=== PATIENT | male | born 1965 | race Caucasian/White ===

== ENCOUNTER 2016-05-14 20:14 | Emergency (ER) | payer MEDICAID, OTHER ==
[~2016-05-14] VITALS: Ht 185.4 cm; Wt 100.0 kg
[2016-05-14 20:15] VITALS: BP 141/97; PULSE 78; RESP 24; TEMP 97.6; O2SAT 97
[2016-05-14] MEDS ORDERED: SODIUM CHLOR 0.9% 1000 ML INJ 1,000 ML IV ONE (20:48)
--- NOTE | 2016-05-14 20:50 | PD ---
HPI Chief Complaint: Flank/Kidney Pain Time Seen by Provider: 20:48 Travel History International Travel<30 days: No Contact w/Intl Traveler<30days: No Traveled to known affect area: No History of Present Illness HPI 51-year-old male who reports a history of peptic ulcer disease with previous H. pylori infection, anxiety, depression presents for evaluation of abdominal pain. Symptoms started several hours ago. He describes it as a sharp pain in left lower quadrant of the abdomen that radiates into the back. Symptoms seem to come and go. He reports a similar pain twice over the past 1.5 months which lasted about 20 minutes at a time and then resolved. Today the pain was more constant which prompted evaluation. He reports that he had normal bowel movement today but he feels like he would like to have another bowel movement but is unable to like constipation. He denies any rectal pain, he denies any testicular or scrotal pain, denies any hematuria or true flank pain, urinary hesitancy, nausea or vomiting, fevers or chills. No history of kidney stone, diverticulosis, AAA. No other complaints. PFSH Past Medical History Diminished Hearing: No Hypertension: Yes Medical other: Yes (H PYLORI VS IBS) Past Surgical History Cholecystectomy: Yes Other Surgery: Yes (HERNIA REPAIR) Social History Alcohol Use: No Tobacco Use: No Substance Use: No Allergies-Medications (Allergen,Severity, Reaction): Coded Allergies: No Known Allergies (Unverified , 05/14/16) Reported Meds & Prescriptions Reported Meds & Active Scripts Active Zofran Odt (Ondansetron Odt) 4 Mg Tab 4 Mg SL Q6HR PRN Ketorolac (Ketorolac Tromethamine) 10 Mg Tab 10 Mg PO TID 5 Days Flomax (Tamsulosin HCl) 0.4 Mg Cap 0.4 Mg PO HS Review of Systems Except as stated in HPI: all other systems reviewed are Neg Physical Exam Narrative GENERAL: Well-developed well-nourished male who appears anxious and uncomfortable on initial examination. SKIN: Warm and dry. HEAD: Atraumatic. Normocephalic. EYES: Pupils equal and round. No scleral icterus. No injection or drainage. ENT: No nasal bleeding or discharge. Mucous membranes pink and moist. NECK: Trachea midline. No JVD. CARDIOVASCULAR: Regular rate and rhythm. No murmur appreciated. RESPIRATORY: No accessory muscle use. Clear to auscultation. Breath sounds equal bilaterally. GASTROINTESTINAL: Abdomen soft, left lower quadrant tenderness without guarding. There is no CVA tenderness. No palpable inguinal hernias. No testicular or scrotal pain. The patient declines rectal examination. MUSCULOSKELETAL: No obvious deformities. No edema. NEUROLOGICAL: Awake and alert. No obvious cranial nerve deficits. Motor grossly within normal limits. Normal speech. PSYCHIATRIC: Appropriate mood and affect; insight and judgment normal. Data Data Last Documented VS Vital Signs Date Time Temp Pulse Resp B/P Pulse Ox O2 Delivery O2 Flow Rate FiO2 05/14/16 20:15 97.6 78 24 141/97 97 Room Air Orders Complete Blood Count With Diff (05/14/16 20:48) Comprehensive Metabolic Panel (05/14/16 20:48) Urinalysis - C+S If Indicated (05/14/16 20:48) Ct Abd/Pel W/O Iv Contrast (05/14/16 20:48) Iv Access Insert/Monitor (05/14/16 20:48) Ketorolac Inj (Toradol Inj) (05/14/16 21:00) Morphine Inj (Morphine Inj) (05/14/16 21:00) Sodium Chlor 0.9% 1000 Ml Inj (Ns 1000 M (05/14/16 20:48) Lipase (05/14/16 20:48) ^ Other Nursing Orders (05/14/16 22:02) Labs Laboratory Tests Test 05/14/16 05/14/16 21:00 21:45 White Blood Count 16.1 TH/MM3 Red Blood Count 4.43 MIL/MM3 Hemoglobin 13.8 GM/DL Hematocrit 39.7 % Mean Corpuscular Volume 89.6 FL Mean Corpuscular Hemoglobin 31.2 PG Mean Corpuscular Hemoglobin 34.8 % Concent Red Cell Distribution Width 13.6 % Platelet Count 312 TH/MM3 Mean Platelet Volume 7.2 FL Neutrophils (%) (Auto) 83.7 % Lymphocytes (%) (Auto) 10.2 % Monocytes (%) (Auto) 5.1 % Eosinophils (%) (Auto) 0.6 % Basophils (%) (Auto) 0.4 % Neutrophils # (Auto) 13.4 TH/MM3 Lymphocytes # (Auto) 1.6 TH/MM3 Monocytes # (Auto) 0.8 TH/MM3 Eosinophils # (Auto) 0.1 TH/MM3 Basophils # (Auto) 0.1 TH/MM3 CBC Comment DIFF FINAL Differential Comment Sodium Level 139 MEQ/L Potassium Level 4.3 MEQ/L Chloride Level 105 MEQ/L Carbon Dioxide Level 26.6 MEQ/L Anion Gap 7 MEQ/L Blood Urea Nitrogen 19 MG/DL Creatinine 1.37 MG/DL Estimat Glomerular Filtration 55 ML/MIN Rate Random Glucose 125 MG/DL Calcium Level 9.3 MG/DL Total Bilirubin 0.5 MG/DL Aspartate Amino Transf 32 U/L (AST/SGOT) Alanine Aminotransferase 45 U/L (ALT/SGPT) Alkaline Phosphatase 50 U/L Total Protein 7.8 GM/DL Albumin 4.1 GM/DL Lipase 112 U/L Urine Color YELLOW Urine Turbidity CLEAR Urine pH 6.5 Urine Specific [place] 1.011 Urine Protein NEG mg/dL Urine Glucose (UA) NEG mg/dL Urine Ketones NEG mg/dL Urine Occult Blood TRACE Urine Nitrite NEG Urine Bilirubin NEG Urine Urobilinogen LESS THAN 2.0 MG/DL Urine Leukocyte Esterase NEG Urine RBC 9 /hpf Urine WBC 1 /hpf Urine Mucus FEW /lpf Microscopic Urinalysis Comment CULT NOT INDICATED MDM Medical Decision Making Medical Screen Exam Complete: Yes Emergency Medical Condition: Yes Medical Record Reviewed: Yes Interpretation(s) CONCLUSION: 1. Left-sided obstructive uropathy secondary to 4 mm calculus in the distal left ureter with mild left-sided hydronephrosis and perinephric stranding. CBC WBC 16.1 CMP BUN 19, creatinine 1.37 Urinalysis trace hematuria Differential Diagnosis Renal colic, diverticulitis, AAA, muscle spasm, testicular torsion, colitis Narrative Course 51-year-old male presents with left lower quadrant abdominal pain that radiates into the back for several hours. He has had similar pain twice over the past 1.5 months which lasted 20 minutes at a time and then resolved. On initial examination he appears uncomfortable and anxious but he is declining any stronger analgesics. . He will also be given IV fluids and Zofran. Plans for CT of the abdomen and pelvis, urinalysis, basic lab work. The patient had significant improvement of symptoms during his hospital stay. He continued to decline any pain medication. His CT reveals a left-sided 4 mm kidney stone in the distal left ureter with mild left hydronephrosis. The patient is very anxious to leave. He was given a urinary strainer as well as prescription Toradol, Flomax and Zofran. Recommended returning for new or worsening symptoms. Diagnosis Primary Impression: Left ureteral stone Additional Instructions: Urinate into a strainer. As discussed, you have a 4 mm stone in your left ureter. Most of the time you can pass a 4 mm stone. If you develop new or worsening symptoms return to the emergency room. Med/Other Pt SpecificInfo: Prescription(s) given Scripts Ondansetron Odt (Zofran Odt)4 Mg Tab4 Mg SL Q6HR PRN (Nausea/Vomiting) #20 TAB Ref 0 Prov:Lelo Velásquez MD 05/14/16 Ketorolac 10 Mg Tab10 Mg PO TID 5 Days Ref 0 Prov:Lelo Velásquez MD 05/14/16 Tamsulosin (Flomax)0.4 Mg Cap0.4 Mg PO HS #10 CAP Ref 0 Prov:Lelo Velásquez MD 05/14/16 Disposition: 01 DISCHARGE HOME Condition: Stable Jose L Olivera May 14, 2016 20:50
[2016-05-14] MEDS ORDERED: MORPHINE SULFATE 4 MG/ML INJ IV ONE (21:00)
[2016-05-14] MEDS ORDERED: KETOROLAC TROMETHAMINE 30 MG/ML (IVP) VIAL IVP ONE (21:00)
[2016-05-14 21:22] LABS: AUTOMATED NEUTROPHIL # 13.4 TH/MM3 (1.8-7.7); BASOPHIL # 0.1 TH/MM3 (0-0.2); BASOPHIL % 0.4 % (0.0-2.0); EOSINOPHIL # 0.1 TH/MM3 (0-0.4); EOSINOPHIL % 0.6 % (0.0-4.0); HEMATOCRIT 39.7 % (39.0-51.0); HEMO FLAGS DIFF FINAL; LYMPH % 10.2 % (9.0-44.0); LYMPHOCYTE # 1.6 TH/MM3 (1.0-4.8); MEAN CELL VOLUME 89.6 FL (80.0-100.0); MEAN CORPUSCULAR HEMOGLOBIN 31.2 PG (27.0-34.0); MEAN CORPUSCULAR HGB CONC 34.8 % (32.0-36.0); MONO % 5.1 % (0.0-8.0); NEUT % 83.7 % (16.0-70.0); PLATELET COUNT 312 TH/MM3 (150-450); RED BLOOD COUNT 4.43 MIL/MM3 (4.50-5.90); RED CELL DISTRIBUTION WIDTH 13.6 % (11.6-17.2); WHITE BLOOD COUNT 16.1 TH/MM3 (4.0-11.0)
--- NOTE | 2016-05-14 21:52 | RADRPT ---
EXAM DATE/TIME: 05/14/2016 21:35 [facility] COMPARISON: No previous studies available for comparison. INDICATIONS : Left flank pain. ORAL CONTRAST: No oral contrast ingested. RADIATION DOSE: 13.52 CTDIvol (mGy) MEDICAL HISTORY : Hypertension. Peptic ulcer disease. SURGICAL HISTORY : Cholecystectomy. Hernia repair. ENCOUNTER: Initial ACUITY: 1 day PAIN SCALE: 6/10 LOCATION: Left flank TECHNIQUE: Volumetric scanning of the abdomen and pelvis was performed. Using automated exposure control and ad justment of the mA and/or kV according to patient size, radiation dose was kept as low as reasonably achievable to obtain optimal diagnostic quality images. FINDINGS: Lung bases demonstrate minimal atelectasis. No significant abnormality in the liver, spleen, adrenals , right kidney or pancreas. Previous cholecystectomy. 1.9 cm cyst caudate lobe liver. There is a left-sided obstructive uropathy with mild left hydronephrosis and ureteral dilatation abov e a 4 mm calculus in the distal left ureter just above the bladder. There is left-sided perinephric s tranding. No renal calculi. No right-sided obstructive uropathy. CONCLUSION: 1. Left-sided obstructive uropathy secondary to 4 mm calculus in the distal left ureter with mild lef t-sided hydronephrosis and perinephric stranding. López Chavarria MD on May 14, 2016 at 21:43 Board Certified Radiologist. This report was verified electronically.
[2016-05-14 22:08] LABS: ALKALINE PHOSPHATASE 50 U/L (45-117); ALT (GPT) 45 U/L (12-78); ANION GAP 7 MEQ/L (5-15); AST (GOT) 32 U/L (15-37); BICARBONATE 26.6 MEQ/L (21.0-32.0); BLOOD UREA NITROGEN 19 MG/DL (7-18); CHLORIDE 105 MEQ/L (98-107); GLOMERULAR FILTRATION RATE 55 ML/MIN (>89); POTASSIUM 4.3 MEQ/L (3.5-5.1); SODIUM (NA) 139 MEQ/L (136-145); TOTAL BILIRUBIN ADULT 0.5 MG/DL (0.2-1.0)
[2016-05-14 22:10] LABS: BLOOD, URINE TRACE (NEG); COMMENT (UR) CULT NOT INDICATED; CULTURE IF INDICATED CULT NOT INDICATED; GLUCOSE,URINE NEG (NEG); KETONE, URINE NEG (NEG); MUCUS URINE FEW /lpf (OCC); NITRITE,URINE NEG (NEG); PH, URINE 6.5 (5.0-8.5); URINE COLOR YELLOW (YELLW/STRAW)
[2016-05-14] MEDS ORDERED: KETO10 PO (22:13)
[2016-05-14] MEDS ORDERED: ZOFR4TAB3 SL (22:13)
[2016-05-14] MEDS ORDERED: TAMS5CAP PO (22:13)
--- NOTE | 2016-05-14 22:40 | PD ---
Data Data Last Documented VS Vital Signs Date Time Temp Pulse Resp B/P Pulse Ox O2 Delivery O2 Flow Rate FiO2 05/14/16 20:15 97.6 78 24 141/97 97 Room Air Orders Complete Blood Count With Diff (05/14/16 20:48) Comprehensive Metabolic Panel (05/14/16 20:48) Urinalysis - C+S If Indicated (05/14/16 20:48) Ct Abd/Pel W/O Iv Contrast (05/14/16 20:48) Iv Access Insert/Monitor (05/14/16 20:48) Ketorolac Inj (Toradol Inj) (05/14/16 21:00) Morphine Inj (Morphine Inj) (05/14/16 21:00) Sodium Chlor 0.9% 1000 Ml Inj (Ns 1000 M (05/14/16 20:48) Lipase (05/14/16 20:48) ^ Other Nursing Orders (05/14/16 22:02) Labs Laboratory Tests Test 05/14/16 05/14/16 21:00 21:45 White Blood Count 16.1 TH/MM3 Red Blood Count 4.43 MIL/MM3 Hemoglobin 13.8 GM/DL Hematocrit 39.7 % Mean Corpuscular Volume 89.6 FL Mean Corpuscular Hemoglobin 31.2 PG Mean Corpuscular Hemoglobin 34.8 % Concent Red Cell Distribution Width 13.6 % Platelet Count 312 TH/MM3 Mean Platelet Volume 7.2 FL Neutrophils (%) (Auto) 83.7 % Lymphocytes (%) (Auto) 10.2 % Monocytes (%) (Auto) 5.1 % Eosinophils (%) (Auto) 0.6 % Basophils (%) (Auto) 0.4 % Neutrophils # (Auto) 13.4 TH/MM3 Lymphocytes # (Auto) 1.6 TH/MM3 Monocytes # (Auto) 0.8 TH/MM3 Eosinophils # (Auto) 0.1 TH/MM3 Basophils # (Auto) 0.1 TH/MM3 CBC Comment DIFF FINAL Differential Comment Sodium Level 139 MEQ/L Potassium Level 4.3 MEQ/L Chloride Level 105 MEQ/L Carbon Dioxide Level 26.6 MEQ/L Anion Gap 7 MEQ/L Blood Urea Nitrogen 19 MG/DL Creatinine 1.37 MG/DL Estimat Glomerular Filtration 55 ML/MIN Rate Random Glucose 125 MG/DL Calcium Level 9.3 MG/DL Total Bilirubin 0.5 MG/DL Aspartate Amino Transf 32 U/L (AST/SGOT) Alanine Aminotransferase 45 U/L (ALT/SGPT) Alkaline Phosphatase 50 U/L Total Protein 7.8 GM/DL Albumin 4.1 GM/DL Lipase 112 U/L Urine Color YELLOW Urine Turbidity CLEAR Urine pH 6.5 Urine Specific [place] 1.011 Urine Protein NEG mg/dL Urine Glucose (UA) NEG mg/dL Urine Ketones NEG mg/dL Urine Occult Blood TRACE Urine Nitrite NEG Urine Bilirubin NEG Urine Urobilinogen LESS THAN 2.0 MG/DL Urine Leukocyte Esterase NEG Urine RBC 9 /hpf Urine WBC 1 /hpf Urine Mucus FEW /lpf Microscopic Urinalysis Comment CULT NOT INDICATED MDM Supervised Visit with [facility]: Yes Narrative Course The history, exam, and medical decision-making in the associated midlevel provider note were completed with my assistance. I reviewed and agree with the findings presented. I attest that I had a [id number] encounter with the patient on the same day, and personally performed and documented my assessment and findings in the medical record. *My assessment and Findings: This is a 51-year-old male who presents to the emergency department with left-sided abdominal pain. Clinically he appears to have renal colic. He was placed on a monitor and an IV was established. CT abdomen and pelvis confirms a 4 mm distal stone with some hydronephrosis. Patient is otherwise well-appearing and his pain subsided in the emergency department. I don't think he requires admission for urologic intervention at this time. He was discharged home. Diagnosis Primary Impression: Left ureteral stone Patient Instructions: General Instructions, Kidney Stones (ED) Departure Forms: Tests/Procedures Additional Instruction: Urinate into a strainer. As discussed, you have a 4 mm stone in your left ureter. Most of the time you can pass a 4 mm stone. If you develop new or worsening symptoms return to the emergency room. Scripts Ondansetron Odt (Zofran Odt)4 Mg Tab4 Mg SL Q6HR PRN (Nausea/Vomiting) #20 TAB Ref 0 Prov:Lelo Velásquez MD 05/14/16 Ketorolac 10 Mg Tab10 Mg PO TID 5 Days Ref 0 Prov:Lelo Velásquez MD 05/14/16 Tamsulosin (Flomax)0.4 Mg Cap0.4 Mg PO HS #10 CAP Ref 0 Prov:Highet,Lelo H. MD 05/14/16 Disposition: 01 DISCHARGE HOME Condition: Stable Lelo Velásquez MD May 14, 2016 22:40
== END 2016-05-14 22:45 | disposition home or self-care (01) ==
LOC: NEPC 20:14
DX: N20.1 Calculus of ureter (principal); N13.30 Unspecified hydronephrosis; I10 Essential (primary) hypertension; Z87.19 Personal history of other diseases of the digestive system; Z86.59 Personal history of other mental and behavioral disorders
CPT/HCPCS: 74176; 80053; 81001; 83690; 85025; 99284; J7030